=== PATIENT | female | born 1965 | race African-American/Black ===

== ENCOUNTER → 2016-06-22 | Outpatient (CLI) | payer OTHER ==
[~2016-06-22] MED LIST: BACTRIM DS TABL1 TA1 PO; BENADRYL25 MG PO; HYDROXYZINE HCL25 M1 PO; IRON1 TA1 PO; MEDROL4 MG/DOSE- PO; TRIAMCINOLONE A15 G3 EXT
--- NOTE | ~2016-06-22 | MR113 ---
[facility] A Service of [facility] RADIOLOGY TEXT RESULTS PATIENT: DORETHA RUSHING LOCATION: [facility] : 65 UNIT #: [id number] AGE: [address]: Colette Gaona MD SEX: F ORDER DR: [id number] [facility] [address] [place], [place] [address] [id number] O MR#: [id number] Acc #: [id number] NAME: DORETHA RUSHING. : 1965 SEX: F STUDY DATE/TIME: 06/22/2016 19:19 UNIT: [facility] ROOM: STUDY DESCRIPTION: MR Lumbar Wo Contrast Attending Physician: Colette Gaona M.D. Referring Physician: Colette Gaona M.D. Ordering Physician: Colette Gaona M.D. Primary Care Physician: No Primary Care Physician MRI CENTER REPORT This report is preliminary unless electronic signature is present. EXAM Lumbar spine MRI HISTORY Back pain radiating into the left leg accompanied by numbness and tingling. Symptoms over the past 2-3 years. TECHNIQUE Multiplanar imaging of the lumbar spine was performed with short and long TR and compared to a previous scan dated 01/13/16. FINDINGS The upper three lumbar disks are normal. There is mild facet degenerative change at L2-L3 and moderate facet disease at L3-L4, left worse than right. This causes only mild foraminal narrowing. At L4-L5, there is degenerative disk disease with disk space narrowing that is mild. There is a grade 1 degenerative spondylolisthesis without evidence of pars defects. There is mild concentric posterior disk bulging and advanced bilateral facet disease. Central stenosis is unchanged. Foraminal narrowing is moderate bilaterally and unchanged from a previous exam. At L5-S1, the disk is degenerated. There is mild bilateral facet disease. There is no significant disk bulging, and the canal and foramina are widely patent. The conus is normal. Marrow edema is noted in the pedicles bilaterally at L5. This was also seen on the previous exam. There is also mild marrow edema in the left pedicle at L4, new since the previous exam. IMPRESSION [facility] A Service of [facility] RADIOLOGY TEXT RESULTS PATIENT: DORETHA RUSHING LOCATION: [facility] : 65 UNIT #: [id number] AGE: [address]: Colette Gaona MD SEX: F ORDER DR: 1. Degenerative disk disease L4-L5 and L5-S1 with a grade 1 degenerative spondylolisthesis at L4-L5. There is advanced facet hypertrophy at L4-L5 and moderate central stenosis as a result. 2. There is marrow edema seen in the pedicles bilaterally at L5 that is more intense than on the previous scan, and there is also new marrow edema in the pedicle on the left at L4 since the previous exam. This could reflect lumbar stress fractures. The conus is normal, and no paraspinous masses are seen. Dictated by... Kai Batista M.D. THIS IS AN ELECTRONICALLY VERIFIED REPORT Kai Batista M.D. at 06/24/2016 10:03 AM Frankie TD: 06/23/2016 21:44 JOB #: [id number] MRI CENTER REPORT Page 1 of 1 COPY
== END | disposition home or self-care (01) ==
LOC: CRAD 18:53 → CMRI 18:53
DX: M54.5 Low back pain (principal); M51.26 Other intervertebral disc displacement, lumbar region; M43.16 Spondylolisthesis, lumbar region; M48.06 Spinal stenosis, lumbar region; R60.0 Localized edema
CPT/HCPCS: 72148

== ENCOUNTER 2016-06-26 13:27 | Emergency (ER) | payer OTHER | END 2016-06-26 14:45 | disposition home or self-care (01) | LOC: CED 13:27 → CFTX 13:27 | DX: Z76.0 Encounter for issue of repeat prescription (principal); F17.210 Nicotine dependence, cigarettes, uncomplicated; D64.9 Anemia, unspecified; F43.10 Post-traumatic stress disorder, unspecified; Z88.0 Allergy status to penicillin; Z90.710 Acquired absence of both cervix and uterus | CPT/HCPCS: 99282 ==

== ENCOUNTER 2016-07-07 09:35 | Emergency (ER) | payer OTHER | END 2016-07-07 11:12 | disposition home or self-care (01) | LOC: CFTX 09:35 → CED 09:35 → CFTX 10:56 | DX: N75.1 Abscess of Bartholin's gland (principal); F17.200 Nicotine dependence, unspecified, uncomplicated | CPT/HCPCS: 56420; 99283 ==